=== PATIENT | male | born 1965 | race Caucasian/White ===

== ENCOUNTER 2024-04-02 19:55 | Inpatient (IN) ==
--- NOTE | 2024-04-02 20:39 | Emergency Department Note ---
History of Present Illness General Chief complaint: Hematuria Stated complaint: NAUSEA, HEMATURIA, HAS CATH, RECENT SURG Time Seen by Provider: 04/02/24 20:32 Source: patient, RN notes reviewed, old records reviewed (04/01/24-op note from urology. Patient had a large bladder mass removed. 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 He has a Llamas catheter in place has had some hematuria at times although the current urine in the tubing is clear. He says he has bladder spasms. He had some nausea just feels unwell mild low back pain he is not sure if he had a fever or not . no vomiting but he has been nauseated. No trauma or injury. Home Medications Medication Instructions Recorded Confirmed Type atorvastatin 20 mg tablet 20 mg PO HS 03/25/24 04/01/24 History celecoxib 100 mg capsule (Celebrex) 100 mg PO BID PRN Pain 03/25/24 04/01/24 History nortriptyline 50 mg capsule 50 mg PO HS 03/25/24 04/01/24 History Allergies Allergy/AdvReac Type Severity Reaction Status Date / Time No Known Allergies Allergy NONE Unverified 03/25/24 08:23 Past Med/Surg History Problem List (Updated 04/02/24 @ 23:39 by Carroll Ryan MD) Abdominal pain (Acute) Nausea & vomiting (Acute) Urinary tract infection (Acute) Hematuria (Acute) Bladder mass Encounter for pre-operative examination Medical History Inmate in correctional facility [facility] Gross hematuria Hyperlipidemia History of hepatitis C virus infection Rer transferring facility records Surgical History Surgical history unknown Social History Smoking Status: Former smoker Tobacco Type: Cigarettes Hx Alcohol Use: No Hx Substance Use: No Preferred Language: Sami Crutching [employer]or Required: No Beliefs That Will Affect Care: None Current Living Situation: Other Current Living Situation Comment: inmate at [facility] Feels Safe at Home: Yes Review of Systems A total of 10 systems reviewed and were otherwise negative Physical Exam Vital Signs Vital Signs - 24 hr 04/02/24 20:04 04/02/24 20:32 04/02/24 20:32 Temperature 36.6 C Temperature Source Temporal Artery Scan Pulse Rate 90 85 Pulse Rate [Apical] 84 Pulse Rhythm Regular Pulse Rhythm [Apical] Regular Pulse Strength [Apical] Respiratory Rate 18 13 17 Respiratory Effort / Characteristics Non-Labored Respiratory Depth Normal Respiratory Pattern Regular Blood Pressure 145/84 H Blood Pressure [Right Arm] 148/103 H Blood Pressure Mean 104 Blood Pressure Mean [Right Arm] 118 Pulse Oximetry 94 95 97 Oxygen Delivery Method Room Air Room Air Room Air Sepsis Recent Fever Within 48 Hours No Sepsis New/Unexplained Change in Mental Status N/A Sepsis Action Taken by Nursing No Action Required 04/02/24 20:46 04/02/24 22:08 04/02/24 22:51 Temperature Temperature Source Pulse Rate 89 Pulse Rate [Apical] 90 91 H Pulse Rhythm Pulse Rhythm [Apical] Regular Regular Pulse Strength [Apical] Normal Normal Respiratory Rate 16 16 Respiratory Effort / Characteristics Non-Labored Spontaneous Non-Labored Spontaneous Respiratory Depth Normal Normal Respiratory Pattern Regular Blood Pressure Blood Pressure [Right Arm] 136/81 129/75 Blood Pressure Mean Blood Pressure Mean [Right Arm] 99 93 Pulse Oximetry 95 97 Oxygen Delivery Method Room Air Room Air Sepsis Recent Fever Within 48 Hours Sepsis New/Unexplained Change in Mental Status Sepsis Action Taken by Nursing General: Well developed well nourished middle-age male who appears in no acute distress, breathing comfortably on room air. Normal speech HEENT: Normal cephalic atraumatic. Pupils are equal round and reactive to light. Extraocular movements are intact. Oropharynx is pink with moist mucous membranes. No swelling of the mouth lips or tongue. Neck: Supple with a midline trachea. No meningeal signs or stiffness, no JVD or bruits. No Stridor. Chest: Clear to auscultation bilaterally. No wheezes or rhonchi. No increased work of breathing. Heart: Regular rate and rhythm without murmurs or gallops. Abdomen: Soft nontender, nondistended without rebound guarding or rigidity. : Llamas is intact and in place with yellow urine seen in the bag. He has some dried blood that appear to be leaking from the urethra but not bleeding at present Extremities: No cyanosis clubbing or edema. No calf tenderness or assymetry Spine/Back. Non tender to palpation. No CVA tenderness Skin: Good turgor without rashes. Neurologic exam: Nonfocal with normal motor and sensation in the legs Course Administered Medications Sodium Chloride (Nss) 1,000 mls @ 80 mls/hr IV .[id number] STA Stop: 04/03/24 12:11 Last Admin: 04/03/24 00:16 Dose: 80 mls/hr Documented By: EMY Morphine Sulfate (Morphine Sulfate 2 Mg/Ml Carp) 2 mg IV Q3H PRN PRN Reason: Mod-Sev Pain (Scale 4-10) Stop: 04/16/24 23:31 Last Admin: 04/03/24 00:25 Dose: 2 mg Documented By: EMY Discontinued Medications Sodium Chloride (Nss) 1,000 mls @ 999 mls/hr IV .Q1H1M ONE Stop: 04/02/24 21:38 Last Infusion: 04/03/24 00:16 Dose: Infused Documented By: Admin: 04/02/24 20:46 Dose: 999 mls/hr Documented By: EMY Sodium Chloride (Nss) 1,000 mls @ 999 mls/hr IV .Q1H1M ONE Stop: 04/02/24 23:42 Last Admin: 04/02/24 23:30 Dose: 999 mls/hr Documented By: EMY Ceftriaxone Sodium (Rocephin) 2,000 mg in 50 mls @ 100 mls/hr IV NOW STA Stop: 04/02/24 23:16 Last Infusion: 04/03/24 00:27 Dose: Infused Documented By: Admin: 04/02/24 23:51 Dose: 100 mls/hr Documented By: EMY Pantoprazole Sodium 40 mg/ (Syringe) 10 mls @ 5 mls/min IV NOW STA Stop: 04/02/24 23:43 Last Admin: 04/02/24 23:54 Dose: 5 mls/min Documented By: EMY Morphine Sulfate (Morphine Sulfate 4 Mg/Ml 1 Ml Carp\Vial) 4 mg IV NOW STA Stop: 04/02/24 20:39 Last Admin: 04/02/24 20:46 Dose: 4 mg Documented By: EMY Ondansetron HCl (Ondansetron Inj 2 Mg/Ml 2 Ml Vial) 4 mg IV NOW STA Stop: 04/02/24 20:39 Last Admin: 04/02/24 20:46 Dose: 4 mg Documented By: EMY Medical Decision Making Differential Diagnosis Postop bleeding, postop complication, UTI, sepsis, Llamas catheter complication Medical Records Attestation: I reviewed the patient's medical records. Home Medications Current Medication List: was personally reviewed by me Laboratory Data Attestation: I reviewed the patient's lab results. 04/02/24 20:10 04/02/24 20:10 Lab Results 04/02/24 04/02/24 04/02/24 Range/Units 20:10 20:18 23:20 WBC 15.86 H (4.8-10.8) K/ul RBC 5.10 (4.70-6.10) M/uL Hgb 15.1 (14.0-18.0) g/dl Hct 45.8 (42.0-52.0) % MCV 89.8 (80.0-100.0) fL MCH 29.6 (25.0-34.0) pg MCHC 33.0 (32.0-36.0) g/dL RDW Std Deviation 39.8 (36.4-46.3) fL RDW Coeff of Steffanie 12.1 (11.5-14.5) % Plt Count 233 (130-400) K/uL MPV 9.9 (9.4-12.4) fL Immature Gran % (Auto) 0.3 % Neut % (Auto) 81.6 % Lymph % (Auto) 7.4 % [place] % (Auto) 10.5 % Eos % (Auto) 0.0 % Baso % (Auto) 0.2 % Neut # (Auto) 12.95 H (1.40-6.50) K/uL Lymph # (Auto) 1.18 L (1.20-3.40) K/uL Providence # (Auto) 1.66 H (0.11-0.59) K/uL Eos # (Auto) 0.00 (0.00-0.50) K/uL Baso # (Auto) 0.03 (0.00-0.20) K/uL Immature Gran # (Auto) 0.04 (0.01-0.20) K/uL Sodium 136 (136-145) mmol/L Potassium 4.8 (3.5-5.1) mmol/L Chloride 102 (98-107) mmol/L Carbon Dioxide 25 (21-32) mmol/L Anion Gap 9 (3-11) BUN 26 H (6-23) mg/dl Creatinine 1.31 (0.6-1.4) mg/dl Est Cr Clr Drug Dosing 61.5 ml/min Est GFR ( Amer) 68.6 ml/min Est GFR (Non-Af Amer) 59.2 ml/min BUN/Creatinine Ratio 19.8 (10-20) Glucose 114 H (70-99(Fasting)) mg/dl Lactate 1.3 (0.4-2.0) mmol/L Calcium 9.7 (8.6-10.3) mg/dl Total Bilirubin 1.0 (0.2-1.0) mg/dl AST 26 (13-39) U/L ALT 14 (7-52) U/L Alkaline Phosphatase 74 (34-104) U/L Total Protein 7.7 (6.0-8.3) gm/dl Albumin 4.5 (3.4-5.0) gm/dl Globulin 3.2 (2.5-4.0) gm/dl Albumin/Globulin Ratio 1.4 (0.9-2) Lipase 9 L (11-82) U/L Urine Color Yellow Urine Appearance Clear (Clear) Urine pH 5.5 (4.5-7.5) Ur Specific Shannon 1.025 (1.000-1.030) Urine Protein 2+ H (Negative) Urine Glucose (UA) Negative (Negative) Urine Ketones Negative (Negative) Urine Blood 3+ H (Negative) Urine Nitrite Negative (Negative) Urine Bilirubin Negative (Negative) Urine Urobilinogen Negative (Negative) Ur Leukocyte Esterase 1+ H (Negative) Urine WBC (Auto) 21-50 H (0-5) /hpf Urine RBC (Auto) >20 H (0-2) /hpf U Hyaline Cast (Auto) 6-10 H (0-2) /lpf U Epithel Cells (Auto) 0-2 (0-2) /hpf Urine Bacteria (Auto) None Seen (None Seen) Imaging Data Attestation: I personally reviewed and interpreted this imaging study as follows: My Impression: CT of the abdomen and pelvisstone study I do not see any definite obstructive uropathy I do not see any free air around the bladder. MDM Narrative This patient comes in described above he has been having some discomfort and hematuria after having surgery yesterday for a large bladder mass. He has had some bleeding coming from the catheter site as well but is not actively bleeding presently his urine appears clear at the urine nurse to a bladder scan and he has 0 retained urine so he is emptying at this point it is possible he did have a clot and then passed it. Blood work was obtained IV was established and he was hydrated with a 1 L IV normal saline bolus was given morphine 4 mg IV and Zofran 4 mg IV for pain and nausea management. Blood and urine were obtained he was observed and reassessed. He was feeling a lot better though we did get 1 blood pressure in the 80s however this was after the morphine will rechecked it was 129. I did add lactic acid and blood cultures because he also had a white count of 15 his urine does look potentially infected. He was given a second 1 L normal saline bolus he was given Rocephin 2 g IV. I did discuss the case with Dony Rodriguez, who is covering for urology [facility], he saw the patient in the ED he feels that medicine should admit the patient for monitoring and evaluation I discussed case with Dr. Serrano as well he has asked that we order CAT scan and he will see the patient this was ordered. I do not see anything obvious on CT. Dr. Serrano did see the patient and the patient will be admitted/observed. Unfortunately the formal CAT scan is not back yet due to the delay due to stat rad. They will follow-up when the patient is in the hospital. Continuous cardiac monitoring: Orders placed in EMR for continuous cardiac monitoring: Upon my evaluation patient to be in normal sinus with a rate of 90 Impression & Plan Hematuria, Urinary tract infection, Nausea & vomiting, Abdominal pain Discharge Plan Visit Data Chief Complaint: Hematuria Stated Complaint: NAUSEA, HEMATURIA, HAS CATH, RECENT SURG ED Provider: Carroll Ryan Discharge Problem: Hematuria, Urinary tract infection, Nausea & vomiting, Abdominal pain Patient Disposition: Admitted As Inpatient Discharge Instructions Interventions: ED Discharge Assessment Last Done: 04/03/24 01:14 Discharge Problem: Hematuria Qualifiers: Hematuria type: gross Qualified Code(s): R31.0 - Gross hematuria Urinary tract infection Qualifiers: Urinary tract infection type: acute cystitis Hematuria presence: with hematuria Qualified Code(s): N30.01 - Acute cystitis with hematuria Nausea & vomiting Qualifiers: Vomiting type: unspecified Qualified Code(s): R11.2 - Nausea with vomiting, unspecified Abdominal pain Qualifiers: Abdominal location: lower abdomen, unspecified Qualified Code(s): R10.30 - Lower abdominal pain, unspecified
[2024-04-02 20:41] LABS: Basophils # (auto) 0.03 K/uL (0.00-0.20); Basophils % (auto) 0.2 %; Hematocrit (blood only) 45.8 % (42.0-52.0); Hemoglobin 15.1 g/dl (14.0-18.0); Immature Granulocytes # (auto) 0.04 K/uL (0.01-0.20); Immature Granulocytes % (auto) 0.3 %; Lymphocytes # (auto) 1.18 K/uL (1.20-3.40); Lymphocytes % (auto) 7.4 %; Mean Corpuscular Hemoglobin 29.6 pg (25.0-34.0); Mean Corpuscular Volume 89.8 fL (80.0-100.0); Mean Platelet Volume 9.9 fL (9.4-12.4); Monocytes # (auto) 1.66 K/uL (0.11-0.59); Monocytes % (auto) 10.5 %; Neutrophils # (auto) 12.95 K/uL (1.40-6.50); Neutrophils % (auto) 81.6 %; Platelet Count 233 K/uL (130-400); RDW Coefficient of Variation 12.1 % (11.5-14.5); RDW Standard Deviation 39.8 fL (36.4-46.3); White Blood Count 15.86 K/ul (4.8-10.8)
[2024-04-02] MEDS: ONDANSETRON INJ 2 MG/ML 2 ML VIAL IV STA (20:46)
[2024-04-02] MEDS: SODIUM CHLORIDE 0.9% 1,000 ML IV ONE ×2 (20:46→23:30)
[2024-04-02] MEDS: MoRPHine SULFATE 4 MG/ML 1 ML CARP\\VIAL IV STA (20:46)
[2024-04-02 20:54] LABS: Albumin Globulin Ratio 1.4 (0.9-2); Albumin Level 4.5 gm/dl (3.4-5.0); BUN Creatinine Ratio 19.8 (10-20); Calcium 9.7 mg/dl (8.6-10.3); Creatinine Clr Calc Pharmacy 61.5 ml/min; Est GFR (African American) 68.6 ml/min; Est GFR (Non-African American) 59.2 ml/min; Globulin 3.2 gm/dl (2.5-4.0); Potassium 4.8 mmol/L (3.5-5.1); Total Protein 7.7 gm/dl (6.0-8.3)
[2024-04-02 20:58] LABS: Appearance Urine Clear (Clear); Bacteria Urine Automated None Seen (None Seen); Bilirubin Urine Negative (Negative); Blood Urine 3+ (Negative); Color Urine Yellow; Epithelial Cell Urine Auto 0-2 /hpf (0-2); Glucose Urine UA Negative (Negative); Ketones Urine Negative (Negative); Leukocyte Esterase Urine 1+ (Negative); Nitrite Urine Negative (Negative); Protein Urine 2+ (Negative); RBC Urine Automated >20 /hpf (0-2); Specific Gravity Urine 1.025 (1.000-1.030); Urobilinogen Urine Negative (Negative); WBC Urine Automated 21-50 /hpf (0-5); pH Urine 5.5 (4.5-7.5)
--- NOTE | 2024-04-02 23:09 | Urology Consultation ---
Date of Consultation April 02, 2024 Assessment & Plan (1) Hematuria: (2) Urinary tract infection: I discussed with the treating emergency room physician and due to the patient's symptomatology he is being admitted on the hospital service. From a urologic perspective we recommend the following: Is possible that the patient may have an underlying urinary tract infection/early sepsis therefore I agree with observation in the hospital Although the patient was discharged to his correctional facility on Cipro, he has had nausea and vomiting questioning the reliability of his antibiotic intake. Treating emergency room physician has ordered Rocephin and we will continue this antibiotic. Appropriate cultures have been ordered and antibiotics be tailored based on these results Would recommend continuing hydration with IV fluids Would recommend following serial labs It is noteworthy to mention that while I examined the patient I did flush and irrigate his catheter. The catheter flushed and irrigated quite easily and I did not obtain any bloody urine or visible blood clots with this maneuver and the patient did not experience any considerable discomfort with this. If the patient's Llamas catheter does become clogged manual flushing and irrigation maneuvers can be employed by the nursing staff Additional recommendations will be made based on his clinical course as it unfolds Plan Discussed patient with LEXI. Agree with plan. Saw patient personally. Patient is feeling better. Catheter is draining clear urine now. Labs are improving. Cultures have grown no specific organisms. No urologic intervention necessary. Patient can have a diet. Suspected patient is feeling better tomorrow he can be discharged home. History of Present Illness Reason for Consultation: Hematuria Concern for urinary tract infection after recent urologic procedure History of Present Illness This is a 58-year-old male who presented to the emergency department after feeling unwell after urologic procedure. This man is currently incarcerated and yesterday underwent a cystoscopy with transurethral resection of a bladder tumor and fulguration of prostatic varicosities. The patient was discharged back to his correctional facility with a Llamas catheter in place. He was discharged on antibiotics. Over the past 12 hours or so the patient has been feeling unwell. He describes bladder spasms and he has had urine and blood leaking from around his Llamas catheter. He says he has had fevers but could not quantify how high. He is also had shakes and chills. In addition the patient has had nausea and vomiting. He denies any back or flank pain. Because of the symptomatology he presented to the emergency department. In the emergency department the treating emergency room physician noted that the urine was initially bloody but then cleared up. He also notes that the patient did have a few episodes of relative hypotension and the patient had a slight tachycardia at heart rate of 91. Since arrival to the hospital the patient has had labs which I independently reviewed. CBC revealed the patient's white blood cell count was elevated at 15.8. Hemoglobin and hematocrit as well as the platelet count were normal. Chemistry profile showed sodium and potassium as well as the creatinine were normal. His BUN was slightly elevated at 26. Urinalysis showed 3+ blood with 1+ leukocyte Estrace and pyuria with 21-50 white blood cells per high-power field. There is no bacteria or nitrites on the study. At the time of my interview he was resting comfortably in bed and he was no distress. Allergies Allergy/AdvReac Type Severity Reaction Status Date / Time No Known Allergies Allergy NONE Unverified 03/25/24 08:23 Home Medications Medication Instructions Recorded Confirmed Type atorvastatin 20 mg tablet 20 mg PO HS 03/25/24 04/01/24 History celecoxib 100 mg capsule (Celebrex) 100 mg PO BID PRN Pain 03/25/24 04/01/24 History nortriptyline 50 mg capsule 50 mg PO HS 03/25/24 04/01/24 History Patient History Medical History Inmate in correctional facility [facility] Gross hematuria Hyperlipidemia History of hepatitis C virus infection Rer transferring facility records Surgical History Surgical history unknown Social History Smoking Status: Unknown if ever smoked Tobacco Type: Cigarettes Hx Alcohol Use: No Hx Substance Use: No Preferred Language: Greek Communication Ability: Effective Authors Motivational Required: No Beliefs That Will Affect Care: None Current Living Situation: Other Current Living Situation Comment: prisoner at [facility] Feels Safe at Home: Yes Review of Systems Review of Systems: All systems reviewed & are unremarkable except as noted in HPI & below Physical Exam Constitutional: WD/WN, vitals as above Eyes: no conjunctival abnormality ENMT: Ears: no hearing impairment and no external ear abnormality Mouth: no oropharynx abnormality Neck: trachea midline Respiratory: normal respiratory effort; no respiratory distress and no labored breathing Cardiovascular: Rate/Rhythm: regular rate and regular rhythm Gastrointestinal (Abdomen): Abdomen is soft, and nontender to palpation Musculoskeletal: No calf tenderness Skin: no rashes Neurologic: + does not move all extremities Psychiatric: A+Ox3, euthymic affect Genitourinary: Patient's genitals were examined. Patient had a normal appearing penis with a Llamas catheter in place. There is some dried blood around the Llamas catheter at the urethral meatus. There is no pain with palpation of the suprapubic region. There is no CVA tenderness with percussion bilaterally. The patient's Llamas catheter is draining clear yellow urine. There is no sediment or clot noted in the Llamas catheter at the time of my exam. Results & Data Vital Signs (Past 12 Hours) Vital Signs Temp Pulse Pulse Resp BP BP Pulse Ox 04/02/24 22:51 91 H 16 129/75 97 04/02/24 22:08 90 16 136/81 95 04/02/24 20:46 89 04/02/24 20:32 85 17 97 04/02/24 20:32 84 13 148/103 H 95 04/02/24 20:04 36.6 C 90 18 145/84 H 94 O2 Del Method 04/02/24 22:51 Room Air 04/02/24 22:08 Room Air 04/02/24 20:46 04/02/24 20:32 Room Air 04/02/24 20:32 Room Air 04/02/24 20:04 Room Air PG Care Time/CCT Total # of Minutes Spent Total Time Spent with Patient: Total time spent is greater than 50% in coordination of care (as documented) at patient's floor/unit and/or counseling patient: Coding Level of Care Code 88042 IN/OBS CONSULT LVL 5,80M Diagnoses Hematuria R31.9 Urinary tract infection N39.0
[2024-04-02] MEDS ORDERED: ONDANSETRON INJ 2 MG/ML 2 ML VIAL IV PRN (23:27)
--- NOTE | 2024-04-02 23:34 | History & Physical Report ---
Date of Service April 02, 2024 Assessment & Plan (1) Gross hematuria: (2) Bladder mass: (3) Nausea & vomiting: (4) Abdominal pain: (5) Urinary tract infection: Plan Status post TURBT for bladder mass/gross hematuria/urinary tract infection- Status post TURBT, cystoscopy with urethral dilatation, fulguration prostate varices, right retrograde pyelogram Status post 1 L normal saline bolus x 2, Zofran 4 mg IV, morphine sulfate 4 mg IV and ceftriaxone 2 g IV from the ED Follow urine culture and sensitivity Continue Llamas catheter was placed yesterday following procedure Ceftriaxone 2 g IV daily Zofran 4 mg IV every 6 hours as needed Acetaminophen 650 mg by by mouth every 6 hours as needed for mild pain or fever Morphine sulfate 2 mg IV every 3 hours as needed for moderate to severe pain NSS at 80 mL/h x 1 L Pantoprazole 40 mg IV daily Urology consulted and saw patient while in the ED History of Present Illness Chief Complaint: The patient presents to the emergency department with complaint of blood in urine after having recent procedure done yesterday, accompanied by nausea and fatigue Primary Care Provider: DAVID Weeks The patient is a 58-year-old male with past medical history including hyperlipidemia, insomnia, and status post TURBT yesterday for bladder mass by urology. He presents to the emergency department with complaint of hematuria, and fatigue. His Llamas catheter was flushed and irrigated while in the emergency department by urology, and patient continued to have good urine output Allergies Allergy/AdvReac Type Severity Reaction Status Date / Time No Known Allergies Allergy NONE Unverified 03/25/24 08:23 Home Medications Medication Instructions Recorded Confirmed Type atorvastatin 20 mg tablet 20 mg PO HS 03/25/24 04/01/24 History celecoxib 100 mg capsule (Celebrex) 100 mg PO BID PRN Pain 03/25/24 04/01/24 History nortriptyline 50 mg capsule 50 mg PO HS 03/25/24 04/01/24 History Past Med/Surg History Problem List (Updated 04/03/24 @ 03:52 by Delgado Almeida MD) Gross hematuria Abdominal pain (Acute) Nausea & vomiting (Acute) Urinary tract infection (Acute) Hematuria (Acute) Bladder mass Encounter for pre-operative examination Medical History Inmate in correctional facility [facility] Gross hematuria Hyperlipidemia History of hepatitis C virus infection Rer transferring facility records Surgical History Surgical history unknown Social History Smoking Status: Unknown if ever smoked Tobacco Type: Cigarettes Hx Alcohol Use: No Hx Substance Use: No Preferred Language: Malagasy Communication Ability: 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: No Beliefs That Will Affect Care: None Current Living Situation: Other Current Living Situation Comment: prisoner at [facility] Feels Safe at Home: Yes Review of Systems Review of Systems: The patient denies chest pain, palpitations, shortness of breath, dyspnea on exertion, cough, lower extremity swelling, sore throat, diarrhea , constipation, blood in urine or stool, lightheadedness, dizziness, headache, memory loss, loss of consciousness, imbalance, focal or generalized weakness, numbness or tingling in arms or legs, generalized arthralgias or myalgias, back or neck pain, or night sweats. The review of systems is otherwise negative other than for that already noted above, and at least 10 systems have been reviewed. Physical Exam Physical Exam: The patient is awake, alert and oriented 3, well developed and well nourished, normocephalic and atraumatic, lying in bed and in no acute distress. HEENT--PERRL, EOMI, mucous membranes and oropharynx dry. Neck--supple. No JVD. No bruits. Thyroid normal, trachea midline, no adeno merle. Heart--normal S1 and S2. No murmurs, rubs or gallops. Lungs--clear bilaterally, no respiratory distress, no accessory muscle use. Abdomen--normal bowel sounds and soft. Nontender. Nondistended, no hernias or masses, no organomegaly. Extremities--no cyanosis or clubbing. No edema. Dermatologic--normal skin turgor, normal color, no abnormal lymph nodes, no rash. Neurologic--cranial nerves II through XII grossly intact. Rheumatologic--normal range of motion. Psychiatric--normal affect. Results & Data Results & Data Vital Signs (Past 12 Hours) Vital Signs Temp Pulse Pulse Resp BP BP Pulse Ox 04/02/24 22:51 91 H 16 129/75 97 04/02/24 22:08 90 16 136/81 95 04/02/24 20:46 89 04/02/24 20:32 85 17 97 04/02/24 20:32 84 13 148/103 H 95 04/02/24 20:04 36.6 C 90 18 145/84 H 94 O2 Del Method 04/02/24 22:51 Room Air 04/02/24 22:08 Room Air 04/02/24 20:46 04/02/24 20:32 Room Air 04/02/24 20:32 Room Air 04/02/24 20:04 Room Air Laboratory Results Laboratory Results WBC 15.86 K/ul (4.8-10.8) H 04/02/24 20:10 RBC 5.10 M/uL (4.70-6.10) 04/02/24 20:10 Hgb 15.1 g/dl (14.0-18.0) 04/02/24 20:10 Hct 45.8 % (42.0-52.0) 04/02/24 20:10 MCV 89.8 fL (80.0-100.0) 04/02/24 20:10 MCH 29.6 pg (25.0-34.0) 04/02/24 20:10 MCHC 33.0 g/dL (32.0-36.0) 04/02/24 20:10 RDW Std Deviation 39.8 fL (36.4-46.3) 04/02/24 20:10 RDW Coeff of Steffanie 12.1 % (11.5-14.5) 04/02/24 20:10 Plt Count 233 K/uL (130-400) 04/02/24 20:10 MPV 9.9 fL (9.4-12.4) 04/02/24 20:10 Immature Gran % (Auto) 0.3 % 04/02/24 20:10 Neut % (Auto) 81.6 % 04/02/24 20:10 Lymph % (Auto) 7.4 % 04/02/24 20:10 Culberson % (Auto) 10.5 % 04/02/24 20:10 Eos % (Auto) 0.0 % 04/02/24 20:10 Baso % (Auto) 0.2 % 04/02/24 20:10 Neut # (Auto) 12.95 K/uL (1.40-6.50) H 04/02/24 20:10 Lymph # (Auto) 1.18 K/uL (1.20-3.40) L 04/02/24 20:10 Culberson # (Auto) 1.66 K/uL (0.11-0.59) H 04/02/24 20:10 Eos # (Auto) 0.00 K/uL (0.00-0.50) 04/02/24 20:10 Baso # (Auto) 0.03 K/uL (0.00-0.20) 04/02/24 20:10 Immature Gran # (Auto) 0.04 K/uL (0.01-0.20) 04/02/24 20:10 Sodium 136 mmol/L (136-145) 04/02/24 20:10 Potassium 4.8 mmol/L (3.5-5.1) 04/02/24 20:10 Chloride 102 mmol/L (98-107) 04/02/24 20:10 Carbon Dioxide 25 mmol/L (21-32) 04/02/24 20:10 Anion Gap 9 (3-11) 04/02/24 20:10 BUN 26 mg/dl (6-23) H 04/02/24 20:10 Creatinine 1.31 mg/dl (0.6-1.4) 04/02/24 20:10 Est Cr Clr Drug Dosing 61.5 ml/min 04/02/24 20:10 Est GFR ( Amer) 68.6 ml/min 04/02/24 20:10 Est GFR (Non-Af Amer) 59.2 ml/min 04/02/24 20:10 BUN/Creatinine Ratio 19.8 (10-20) 04/02/24 20:10 Glucose 114 mg/dl (70-99(Fasting)) H 04/02/24 20:10 Lactate 1.3 mmol/L (0.4-2.0) 04/02/24 23:20 Calcium 9.7 mg/dl (8.6-10.3) 04/02/24 20:10 Total Bilirubin 1.0 mg/dl (0.2-1.0) 04/02/24 20:10 AST 26 U/L (13-39) 04/02/24 20:10 ALT 14 U/L (7-52) 04/02/24 20:10 Alkaline Phosphatase 74 U/L (34-104) 04/02/24 20:10 Total Protein 7.7 gm/dl (6.0-8.3) 04/02/24 20:10 Albumin 4.5 gm/dl (3.4-5.0) 04/02/24 20:10 Globulin 3.2 gm/dl (2.5-4.0) 04/02/24 20:10 Albumin/Globulin Ratio 1.4 (0.9-2) 04/02/24 20:10 Lipase 9 U/L (11-82) L 04/02/24 20:10 Urine Color Yellow 04/02/24 20:18 Urine Appearance Clear (Clear) 04/02/24 20:18 Urine pH 5.5 (4.5-7.5) 04/02/24 20:18 Ur Specific Bernard 1.025 (1.000-1.030) 04/02/24 20:18 Urine Protein 2+ (Negative) H 04/02/24 20:18 Urine Glucose (UA) Negative (Negative) 04/02/24 20:18 Urine Ketones Negative (Negative) 04/02/24 20:18 Urine Blood 3+ (Negative) H 04/02/24 20:18 Urine Nitrite Negative (Negative) 04/02/24 20:18 Urine Bilirubin Negative (Negative) 04/02/24 20:18 Urine Urobilinogen Negative (Negative) 04/02/24 20:18 Ur Leukocyte Esterase 1+ (Negative) H 04/02/24 20:18 Urine WBC (Auto) 21-50 /hpf (0-5) H 04/02/24 20:18 Urine RBC (Auto) >20 /hpf (0-2) H 04/02/24 20:18 U Hyaline Cast (Auto) 6-10 /lpf (0-2) H 04/02/24 20:18 U Epithel Cells (Auto) 0-2 /hpf (0-2) 04/02/24 20:18 Urine Bacteria (Auto) None Seen (None Seen) 04/02/24 20:18 Impressions Abdomen/Pelvis CT 04/02/24 23:14 Exam(s): CT ABDOMEN + PELVIS Without Contrast EXAM: CT Abdomen and Pelvis Without Intravenous Contrast CLINICAL HISTORY: Reason for exam: s/p bladder surgey day #1, heamturia. TECHNIQUE: Axial computed tomography images of the abdomen and pelvis without intravenous contrast. Automated exposure control was utilized for the study. A dose lowering technique was utilized adhering to the principles of ALARA. COMPARISON: No relevant prior studies available. FINDINGS: Lung bases: Unremarkable. No mass. No consolidation. ABDOMEN: Liver: Unremarkable. Gallbladder and bile ducts: Unremarkable. No calcified stones. No ductal dilation. Pancreas: Unremarkable. No ductal dilation. Spleen: Unremarkable. No splenomegaly. Adrenals: Unremarkable. No mass. Kidneys and ureters: Nonobstructing 2 mm left lower pole renal stone. Stomach and bowel: Diverticulosis, without acute diverticulitis. No small bowel obstruction. No free intraperitoneal air. PELVIS: Appendix: No findings to suggest acute appendicitis. Bladder: Llamas catheter terminates in the urinary bladder which demonstrates wall thickening and surrounding inflammation. Findings are consistent with UTI. No stones. Reproductive: Unremarkable as visualized. ABDOMEN and PELVIS: Intraperitoneal space: Unremarkable. No free air. No significant fluid collection. Bones/joints: Degenerative changes of the spine. No acute fracture. No dislocation. Soft tissues: Unremarkable. Vasculature: Atherosclerotic changes of the aorta. No abdominal aortic aneurysm. Lymph nodes: Unremarkable. No enlarged lymph nodes. IMPRESSION: 1. Llamas catheter terminates in the urinary bladder which demonstrates wall thickening and surrounding inflammation. Findings are consistent with UTI. 2. Nonobstructing 2 mm left lower pole renal stone. 3. Diverticulosis, without acute diverticulitis. No small bowel obstruction. No free intraperitoneal air. Electronically signed by: Edgar Frias MD 04/03/24 01:42 AM Code Status & VTE Plan Code Status Full code VTE Prophylaxis Plan VTE Prophylaxis will be ordered: Yes PG Care Time/CCT Total # of Minutes Spent Total Time Spent with Patient: Total time spent is greater than 50% in coordination of care (as documented) at patient's floor/unit and/or counseling patient: Coding Level of Care Code 25050 INT INP/OBS CARE 2/55MIN Diagnoses Gross hematuria R31.0 Bladder mass N32.89 Nausea & vomiting R11.2 Vomiting type: unspecified Abdominal pain R10.30 Abdominal location: lower abdomen, unspecified Urinary tract infection N30.01 Hematuria presence: with hematuria Urinary tract infection type: acute cystitis (3) Nausea & vomiting Vomiting type: unspecified Qualified Code(s): R11.2 - Nausea with vomiting, unspecified (4) Abdominal pain Abdominal location: lower abdomen, unspecified Qualified Code(s): R10.30 - Lower abdominal pain, unspecified (5) Urinary tract infection Hematuria presence: with hematuria Urinary tract infection type: acute cystitis Qualified Code(s): N30.01 - Acute cystitis with hematuria
[2024-04-02] MEDS: cefTRIAXone SODIUM 2,000 MG/50 ML BAG IV STA (23:51)
[2024-04-02] MEDS: PANTOprazole 40 MG in SYRINGE 0 ML IV STA (23:54)
[2024-04-03] MEDS: SODIUM CHLORIDE 0.9% 1,000 ML IV STA (00:16)
[2024-04-03] MEDS: MoRPHine SULFATE 2 MG/ML CARP IV PRN (00:25)
--- NOTE | 2024-04-03 01:43 | CT Scan Report ---
Exam(s): CT ABDOMEN + PELVIS Without Contrast EXAM: CT Abdomen and Pelvis Without Intravenous Contrast CLINICAL HISTORY: Reason for exam: s/p bladder surgey day #1, heamturia. TECHNIQUE: Axial computed tomography images of the abdomen and pelvis without intravenous contrast. Automated exposure control was utilized for the study. A dose lowering technique was utilized adhering to the principles of ALARA. COMPARISON: No relevant prior studies available. FINDINGS: Lung bases: Unremarkable. No mass. No consolidation. ABDOMEN: Liver: Unremarkable. Gallbladder and bile ducts: Unremarkable. No calcified stones. No ductal dilation. Pancreas: Unremarkable. No ductal dilation. Spleen: Unremarkable. No splenomegaly. Adrenals: Unremarkable. No mass. Kidneys and ureters: Nonobstructing 2 mm left lower pole renal stone. Stomach and bowel: Diverticulosis, without acute diverticulitis. No small bowel obstruction. No free intraperitoneal air. PELVIS: Appendix: No findings to suggest acute appendicitis. Bladder: Llamas catheter terminates in the urinary bladder which demonstrates wall thickening and surrounding inflammation. Findings are consistent with UTI. No stones. Reproductive: Unremarkable as visualized. ABDOMEN and PELVIS: Intraperitoneal space: Unremarkable. No free air. No significant fluid collection. Bones/joints: Degenerative changes of the spine. No acute fracture. No dislocation. Soft tissues: Unremarkable. Vasculature: Atherosclerotic changes of the aorta. No abdominal aortic aneurysm. Lymph nodes: Unremarkable. No enlarged lymph nodes. IMPRESSION: 1. Llamas catheter terminates in the urinary bladder which demonstrates wall thickening and surrounding inflammation. Findings are consistent with UTI. 2. Nonobstructing 2 mm left lower pole renal stone. 3. Diverticulosis, without acute diverticulitis. No small bowel obstruction. No free intraperitoneal air. Electronically signed by: Edgar Frias MD 04/03/24 01:42 AM
[2024-04-03] MEDS: ACETAMINOPHEN 1,000 MG/100 ML VIAL IV PRN (05:44)
[2024-04-03 07:23] LABS: Basophils # (auto) 0.03 K/uL (0.00-0.20); Basophils % (auto) 0.3 %; Eosinophils # (auto) 0.05 K/uL (0.00-0.50); Eosinophils % (auto) 0.5 %; Hematocrit (blood only) 39.2 % (42.0-52.0); Hemoglobin 12.8 g/dl (14.0-18.0); Immature Granulocytes # (auto) 0.03 K/uL (0.01-0.20); Immature Granulocytes % (auto) 0.3 %; Lymphocytes % (auto) 15.6 %; Mean Corpuscular Hemoglobin 29.3 pg (25.0-34.0); Mean Corpuscular Hgb Conc 32.7 g/dL (32.0-36.0); Mean Corpuscular Volume 89.7 fL (80.0-100.0); Mean Platelet Volume 10.1 fL (9.4-12.4); Monocytes # (auto) 1.27 K/uL (0.11-0.59); Monocytes % (auto) 11.6 %; Neutrophils # (auto) 7.84 K/uL (1.40-6.50); Neutrophils % (auto) 71.7 %; Platelet Count 189 K/uL (130-400); RDW Coefficient of Variation 12.4 % (11.5-14.5); RDW Standard Deviation 40.8 fL (36.4-46.3); Red Blood Count 4.37 M/uL (4.70-6.10); White Blood Count 10.92 K/ul (4.8-10.8)
[2024-04-03 07:57] LABS: Albumin Level 3.7 gm/dl (3.4-5.0); BUN Creatinine Ratio 17.4 (10-20); Calcium 8.6 mg/dl (8.6-10.3); Creatinine Clr Calc Pharmacy 66.6 ml/min; Est GFR (African American) 75.5 ml/min; Est GFR (Non-African American) 65.1 ml/min; Magnesium 2.1 mg/dl (1.7-2.4); Phosphorus 2.8 mg/dl (2.5-4.9); Potassium 4.5 mmol/L (3.5-5.1)
[2024-04-03] MEDS: traMADol HCL 50 MG TABLET PO STA (10:26)
[2024-04-03] MEDS: PANTOprazole 40 MG in SYRINGE 0 ML IV SCH (10:28)
--- NOTE | 2024-04-03 14:10 | Hospitalist Progress Note ---
Date of Service April 03, 2024 Assessment & Plan (1) Urinary tract infection: (2) Gross hematuria: (3) Bladder mass: (4) Nausea & vomiting: (5) Abdominal pain: Plan Status post TURBT for bladder mass/gross hematuria/urinary tract infection- Status post TURBT, cystoscopy with urethral dilatation, fulguration prostate varices, right retrograde pyelogram Urine cultures obtained Prickly started on IV ceftriaxone, continue Follow urine culture and sensitivity Still complains of mild suprapubic pain Added tramadol to his pain regimen Urology consulted and saw patient while in the ED Admission and Anticipated Discharge Date Admission Date: April 02, 2024 Subjective Patient seen and examined, feels overall better, however still complains of mild suprapubic pain Review of Systems Review of Systems: All systems reviewed are negative, apart from the ones contained in the history. Physical Exam Physical Exam: The patient is awake, alert and oriented 3, well developed and well nourished, normocephalic and atraumatic, lying in bed and in no acute distress. HEENT--PERRL, EOMI, mucous membranes and oropharynx mildly dry Neck--supple. No JVD. No bruits. Thyroid normal, trachea midline, no adenopathy. Heart--normal S1 and S2. No murmurs, rubs or gallops. Lungs--clear bilaterally, no respiratory distress, no accessory muscle use. Abdomen--normal bowel sounds and soft. Extremities--no cyanosis or clubbing. No edema. Dermatologic--normal skin turgor, normal color, no abnormal lymph nodes, no rash. Neurologic--cranial nerves II through XII grossly intact. Rheumatologic--normal range of motion. Psychiatric--normal affect. Results & Data Results & Data Vital Signs (Past 12 Hours) Vital Signs Temp Pulse Resp BP Pulse Ox O2 Del Method 04/03/24 07:30 97.9 F 79 16 119/70 93 Room Air PG Care Time/CCT Total # of Minutes Spent Total Time Spent with Patient: Total time spent is greater than 50% in coordination of care (as documented) at patient's floor/unit and/or counseling patient: Coding Level of Care Code 11339 SUB INP/OBS CARE 2/35MIN Diagnoses Urinary tract infection N30.01 Hematuria presence: with hematuria Urinary tract infection type: acute cystitis Gross hematuria R31.0 Bladder mass N32.89 Nausea & vomiting R11.2 Vomiting type: unspecified Abdominal pain R10.30 Abdominal location: lower abdomen, unspecified Time Spent (min) 35 (1) Urinary tract infection Hematuria presence: with hematuria Urinary tract infection type: acute cystitis Qualified Code(s): N30.01 - Acute cystitis with hematuria (4) Nausea & vomiting Vomiting type: unspecified Qualified Code(s): R11.2 - Nausea with vomiting, unspecified (5) Abdominal pain Abdominal location: lower abdomen, unspecified Qualified Code(s): R10.30 - Lower abdominal pain, unspecified
[2024-04-03] MEDS: POLYETHYLENE (MIRALAX) 17 GM PACK PO PRN (21:14)
[2024-04-04] MEDS ORDERED: CEFDINIR 300 MG CAP PO SCH
[2024-04-04 06:57] LABS: Basophils # (auto) 0.03 K/uL (0.00-0.20); Basophils % (auto) 0.4 %; Eosinophils # (auto) 0.21 K/uL (0.00-0.50); Eosinophils % (auto) 2.5 %; Hematocrit (blood only) 39.4 % (42.0-52.0); Hemoglobin 12.8 g/dl (14.0-18.0); Immature Granulocytes # (auto) 0.01 K/uL (0.01-0.20); Immature Granulocytes % (auto) 0.1 %; Lymphocytes # (auto) 2.01 K/uL (1.20-3.40); Lymphocytes % (auto) 24.4 %; Mean Corpuscular Hemoglobin 29.6 pg (25.0-34.0); Mean Corpuscular Hgb Conc 32.5 g/dL (32.0-36.0); Mean Platelet Volume 10.2 fL (9.4-12.4); Monocytes # (auto) 1.25 K/uL (0.11-0.59); Monocytes % (auto) 15.2 %; Neutrophils # (auto) 4.73 K/uL (1.40-6.50); Neutrophils % (auto) 57.4 %; Platelet Count 174 K/uL (130-400); RDW Coefficient of Variation 12.3 % (11.5-14.5); RDW Standard Deviation 41.5 fL (36.4-46.3); Red Blood Count 4.33 M/uL (4.70-6.10); White Blood Count 8.24 K/ul (4.8-10.8)
[2024-04-04 07:37] LABS: Albumin Level 3.6 gm/dl (3.4-5.0); BUN Creatinine Ratio 14.7 (10-20); Calcium 8.8 mg/dl (8.6-10.3); Creatinine Clr Calc Pharmacy 73.9 ml/min; Est GFR (African American) 85.7 ml/min; Est GFR (Non-African American) 73.9 ml/min; Magnesium 1.9 mg/dl (1.7-2.4); Phosphorus 2.7 mg/dl (2.5-4.9); Potassium 4.1 mmol/L (3.5-5.1)
[2024-04-04] MEDS: ACETAMINOPHEN SUSP 160 MG/5 ML BTL PO ONE (11:04)
[2024-04-04] MEDS: ACETAMINOPHEN SUSP 160 MG/5 ML BTL PO STA (11:04)
--- NOTE | 2024-04-04 11:46 | Discharge Summary ---
Date of Service April 04, 2024 Admission HPI Per Admitting Provider The patient is a 58-year-old male with past medical history including hyperlipidemia, insomnia, and status post TURBT yesterday for bladder mass by urology. He presents to the emergency department with complaint of hematuria, and fatigue. His Llamas catheter was flushed and irrigated while in the emergency department by urology, and patient continued to have good urine output Admission Exam (Per Admitting) Constitutional The patient is awake, alert and oriented 3, well developed and well nourished, normocephalic and atraumatic, lying in bed and in no acute distress. HEENT--PERRL, EOMI, mucous membranes and oropharynx mildly dry Neck--supple. No JVD. No bruits. Thyroid normal, trachea midline, no adenopathy. Heart--normal S1 and S2. No murmurs, rubs or gallops. Lungs--clear bilaterally, no respiratory distress, no accessory muscle use. Abdomen--normal bowel sounds and soft. Extremities--no cyanosis or clubbing. No edema. Dermatologic--normal skin turgor, normal color, no abnormal lymph nodes, no rash. Neurologic--cranial nerves II through XII grossly intact. Rheumatologic--normal range of motion. Psychiatric--normal affect. Discharge Data Consultations 04/02/24 23:14 ED Decision to Admit Stat 04/03/24 01:29 Consult Urology Routine Hospital Course (1) Urinary tract infection: (2) Gross hematuria: (3) Bladder mass: (4) Nausea & vomiting: (5) Abdominal pain: Plan Status post TURBT for bladder mass/gross hematuria/urinary tract infection- Status post TURBT, cystoscopy with urethral dilatation, fulguration prostate varices, right retrograde pyelogram Urine cultures obtained Prickly started on IV ceftriaxone, continue Follow urine culture and sensitivity Still complains of mild suprapubic pain Added tramadol to his pain regimen Urology consulted and saw patient while in the ED Coding Level of Care Code 58687 INP/OBS DISCH >30 MIN Diagnoses Urinary tract infection N30.01 Hematuria presence: with hematuria Urinary tract infection type: acute cystitis Gross hematuria R31.0 Bladder mass N32.89 Nausea & vomiting R11.2 Vomiting type: unspecified Abdominal pain R10.30 Abdominal location: lower abdomen, unspecified Time Spent (min) 35
[2024-04-04] MEDS ORDERED: CEFDINIR 300 MG CAP HOME PACK PO ONE ×3 (12:39→13:03)
[2024-04-04] MEDS: CEFDINIR 300 MG CAP PO STA (13:16)
--- NOTE | 2024-04-07 07:20 | Coding Query ---
CODING QUERY To promote full compliance with coding requirements relating to patient care, provider participation is requested in all cases of agency operator uncertainty. Please assist us with the question(s) below: Coding Question(s): Pt admitted one day after TURBT with hematuria and UTI . Please document, if known or suspected, the etiology of these symptoms . Thanks for your help! [facility] Physician's Response(s): Hematuria secondary to TURBT and UTI Principal Diagnosis: "that condition established after study, to be chiefly responsible for occasioning the admission of the patient to the hospital for care." Co-Existing Principal Diagnosis: "when two or more diagnoses equally meet the criteria for principal diagnosis as determined by the circumstances of admission, diagnostic work up, and/or therapy provided, and the Alphabetic Index, Tabular List, or another coding guideline does not provide sequencing direction, any one of the diagnoses may be sequenced first." "When the physician has documented what appears to be a current diagnosis in the body of the record, but has not included the diagnosis in the final diagnostic statement, the physician should be asked whether the diagnosis should be added." (Source Coding [facility] 2 QTR90. p3-4) HI
== END 2024-04-04 15:00 | DRG 920 ==
LOC: ED 19:55 → 3W 23:34 → SUATTDRO 23:34 → 3W 04-03 01:14